=== PATIENT | female | born 1995 | race Two or more races ===

== ENCOUNTER 2017-06-10 14:09 | Emergency (ER) | payer MEDICAID ==
[~2017-06-10] VITALS: Ht 165.1 cm; Wt 72.6 kg
[2017-06-10 14:49] VITALS: BP 137/84
== END 2017-06-10 15:21 | disposition home or self-care (01) ==
LOC: ER 14:09
DX: L23.9 Allergic contact dermatitis, unspecified cause (principal)

== ENCOUNTER 2018-07-26 14:55 | Emergency (ER) | payer MEDICAID ==
[~2018-07-26] VITALS: Ht 167.6 cm; Wt 74.8 kg
[2018-07-26 15:08] VITALS: BP 122/74
== END 2018-07-27 00:47 | disposition home or self-care (01) ==
LOC: ER 15:05
DX: S33.5XXA Sprain of ligaments of lumbar spine, initial encounter (principal); M79.10 Myalgia, unspecified site; X58.XXXA Exposure to other specified factors, initial encounter; Y93.89 Activity, other specified; Y99.8 Other external cause status; Y92.89 Other specified places as the place of occurrence of the external cause
CPT/HCPCS: 72100

== ENCOUNTER → 2021-05-28 | Outpatient (CLI) | payer MEDICAID | END | disposition home or self-care (01) | LOC: LAB 15:19 | PROVIDERS: ATTEND Nurse Practitioner Family | DX: Z20.822 Contact with and (suspected) exposure to COVID-19 (principal) ==